=== PATIENT | female | born 1955 | race Caucasian/White ===

== ENCOUNTER → 2019-04-04 | Outpatient (CLI) | payer BC ==
[~2019-04-04] MED LIST: ALBU90OI6 INH; CEPH500 PO; Daily Multiple1 EACH; ERGO400; Ecotrin325 MG PO; FLUSAL2505 INH; FLUT110OIA IH; HM CALCIUM-MAG1 EACH PO; HYDR1TAB94 PO; IBUP800; IBUP800 PO; LISHYD2012 PO; MECL12.5 PO; OXYACE5T PO; RXCLIN PO; RXOXYACE PO; SULTRIDS PO; TUMERIC PO; Ventolin Soln3 ML INH; ZOLP10 PO
== END | disposition home or self-care (01) ==
LOC: LAB SHORT 08:42 → PLD 08:42
DX: D48.5 Neoplasm of uncertain behavior of skin (principal)
CPT/HCPCS: 88305

== ENCOUNTER 2021-07-27 09:56 | Day surgery (SDC) | payer BC ==
[~2021-07-27] VITALS: Ht 180.3 cm; Wt 110.9 kg
[~2021-07-27 09:56] MED LIST changes: +ALBU90OI INH; +Ativan1 MG; +CALCIUM MAGNES1 EAC1 PO; +DICLOFENAC SOD100 G1; +Flovent Disku250 MCG INH; +L-Lysine500 M1 PO; +TRIPHALA; +TURMERIC ROOT5000 GM; +VITAMIN D325 MC3 PO; +Valerian Root500 MG PO; +ZYRTEC10 M2 PO; +Zolpidem Tartra10 MG PO
--- NOTE | 2021-07-27 11:34 | NUR ---
07/27/21 1134 Kip Hastings BUPIVACAINE 0.5% 30 MLS MIXED 0.15 ML EPI PER ORDER TO MAKE BUPIVACAINE 0.5% 1:200,000 FOR INJECTION AT OPSITE BY DR CAMEJO.
== END 2021-07-27 13:13 | disposition home or self-care (01) ==
LOC: ORSCSDS 09:56
PROVIDERS: Podiatrist Foot & Ankle Surgery
PROC: 0SGP04Z Fusion of Right Toe Phalangeal Joint with Internal Fixation Device, Open Approach (ICD-10-PCS; principal; 2021-07-27 11:15)
PROC: 0SGQ04Z Fusion of Left Toe Phalangeal Joint with Internal Fixation Device, Open Approach (ICD-10-PCS; principal; 2021-07-27 11:15)
DX: M20.42 Other hammer toe(s) (acquired), left foot (principal); M20.41 Other hammer toe(s) (acquired), right foot; J45.909 Unspecified asthma, uncomplicated; G47.33 Obstructive sleep apnea (adult) (pediatric); E11.9 Type 2 diabetes mellitus without complications; Z79.899 Other long term (current) drug therapy
CPT/HCPCS: 82947; J0171; J0690; J1885; J2250; J2704; J3010; J7120

== ENCOUNTER → 2022-09-07 | Outpatient (CLI) | payer BC | END | disposition home or self-care (01) | LOC: LAB 10:10 → LAB SHORT 10:10 | DX: R30.0 Dysuria (principal) | CPT/HCPCS: 87077; 87086; 87186 ==

== ENCOUNTER → 2022-11-08 | Outpatient (CLI) | payer BC | END | disposition home or self-care (01) | LOC: LAB SHORT 13:50 → LAB 13:50 | DX: R30.0 Dysuria (principal) | CPT/HCPCS: 87077; 87086; 87186 ==

== ENCOUNTER → 2023-05-26 | Outpatient (CLI) | payer BC ==
[2023-06-03 08:44] LABS: HPV GENOTYPE 16 BY PCR Negative; HPV GENOTYPE 18 BY PCR Negative; HPV SOURCE Cervical; HPV, OTHER HIGH RISK BY PCR Negative
== END ==
LOC: LAB 19:40 → LAB SHORT 19:40
PROVIDERS: Internal Medicine
DX: Z00.00 Encounter for general adult medical examination without abnormal findings (principal)
CPT/HCPCS: 87624; 88142

== ENCOUNTER → 2024-05-23 | Outpatient (CLI) | payer BC ==
[~2024-05-23] MED LIST changes: +Ativan1 MG PO; +CRANBERRY500 M1 PO; +CYAN500 PO; +FLONASE ALLERG9.9 ML; +FLUTICASONE-SA1 EAC9 INH; -Flovent Disku250 MCG INH; +GABA300 PO; +PYRI100 PO; +[UNRECOGNIZED DRUG - OTHER] PO; +[UNRECOGNIZED DRUG - OTHER] PO
[2024-05-23 15:48] LABS: BASOPHILS ABSOLUTE AUTO 0.03 K/mm3 (0.00-0.23); BASOPHILS PERCENT AUTO 1 % (0-2); EOSINOPHILS ABSOLUTE AUTO 0.25 K/mm3 (0.00-0.68); EOSINOPHILS PERCENT AUTO 6 % (0-6); Hematocrit 40.9 % (33.0-51.0); Hemoglobin 13.7 g/dL (11.5-16.0); IMMATURE GRAN PERCENT AUTO 0 % (0-1); LYMPHOCYTES ABSOLUTE AUTO 1.09 K/mm3 (0.84-5.20); LYMPHOCYTES PERCENT AUTO 25 % (21-46); MONOCYTES ABSOLUTE AUTO 0.32 K/mm3 (0.16-1.47); MONOCYTES PERCENT AUTO 7 % (4-13); Mean Corpuscular HGB 31.1 pg (26.0-34.0); Mean Corpuscular HGB Conc 33.5 g/dL (31.5-36.5); Mean Corpuscular Volume 93 fL (80-100); NEUTROPHILS ABSOLUTE AUTO 2.68 K/mm3 (1.96-9.15); NEUTROPHILS PERCENT AUTO 61 % (41-73); Platelet Count 210 K/mm3 (150-400); RDW Coefficient Variation 12.5 % (11.7-14.2); RDW Standard Deviation 42.7 fL (35.1-46.3); Red Blood Cell Count 4.41 M/mm3 (3.80-5.20); White Blood Cell Count 4.37 K/mm3 (4.00-11.30)
[2024-05-23 16:37] LABS: Alanine Aminotransfer (ALT/SGP 29 U/L (12-78); Albumin, Blood 3.8 g/dL (3.4-5.0); Albumin/Globulin Ratio 1.1 (0.8-1.8); Alk Phos 81 U/L (50-136); Anion Gap 10 mmol/L (3-11); Aspartate Aminotrans (AST/SGOT 23 U/L (12-37); Bilirubin, Total 0.3 mg/dL (0.1-1.0); Blood Urea Nitrogen 14 mg/dL (8-24); Bun/Creatinine Ratio 25.4 (12.0-20.0); CHOL/HDL RATIO 2.9; CO2, Blood 27 mmol/L (21-32); Calcium, Blood 8.9 mg/dL (8.5-10.1); Chloride, Blood 107 mmol/L (98-108); Cholesterol 149 mg/dL (50-200); Creatinine, Blood 0.55 mg/dL (0.40-1.00); Globulin, Blood 3.6 g/dL (2.2-4.0); Glomerular Filtration Rate 99 (60-); Glucose, Blood 122 mg/dL (70-99); HDL Cholesterol 51 mg/dL (>39); LDL/HDL RATIO 1.5; Low Density Lipoprotein Chol 75 mg/dL (0-110); Potassium, Blood 4.1 mmol/L (3.5-5.5); Sodium, Blood 140 mmol/L (136-145); Total Protein, Blood 7.4 g/dL (6.4-8.2); Triglycerides 114 mg/dL (30-160); Very Low Density Lipoprot Chol 22 mg/dL (6-32)
== END | disposition home or self-care (01) ==
LOC: LAB SHORT 09:00
PROVIDERS: Internal Medicine
DX: Z00.00 Encounter for general adult medical examination without abnormal findings (principal); Z13.6 Encounter for screening for cardiovascular disorders; R73.01 Impaired fasting glucose
CPT/HCPCS: 80053; 80061; 83036; 85025

== ENCOUNTER 2024-05-28 08:06 | Day surgery (SDC) | payer BC ==
[~2024-05-28] VITALS: Ht 175.3 cm; Wt 112.4 kg
[2024-05-28] VITALS (12 sets, daily range): BP systolic 125–159; BP diastolic 62–92
[2024-05-28] MEDS ORDERED: Acetaminophen 500 MG Tab PO SCH ×2 (08:25→16:00)
[2024-05-28] MEDS ORDERED: Lactated Ringer's 1,000 ML IV SCH ×2 (08:25→09:25)
[2024-05-28] MEDS ORDERED: CeFAZolin Sodium 2,000 MG in NS 100 ML IV SCH ×2 (08:25→17:30)
[2024-05-28] MEDS ORDERED: Ropivacaine 0.5% HCl/Pf 123.125 MG,EPINEPHrine HCL 0.25 MG,Ketorolac Tromethamine 15 MG... INFIL SCH (08:25)
[2024-05-28] MEDS ORDERED: OxyCODONE HCL 10 MG TABCR PO SCH (08:25)
[2024-05-28] MEDS ORDERED: Chlorhexidine Mouth Care 15 ML UDC MT SCH (08:25)
[2024-05-28] MEDS ORDERED: Tranexamic Acid 1,000 MG in NS 100 ML IV SCH (08:25)
[2024-05-28] MEDS ORDERED: FentaNYL Citrate 50 MCG/ML 2 ML Injection ONE (08:43)
[2024-05-28] MEDS ORDERED: propofoL 40 ML IV ONE ×2 (08:43→10:11)
[2024-05-28] MEDS ORDERED: Midazolam HCl 1MG / ML 2ML Vial IV PRN (08:50)
[2024-05-28] MEDS ORDERED: Lidocaine HCl 1% 5 ML SYR INJ ONE (08:50)
[2024-05-28] MEDS ORDERED: CeFAZolin Sodium 2,000 MG VIAL ONE (08:51)
--- NOTE | 2024-05-28 09:09 | NUR ---
JOSE ANGELLLCHAIRED INTO DAY SURGERY. History, Chart, Medications and Allergies reviewed before start of procedure. Pre-Op teaching done. Pt verbalizes understanding.
[2024-05-28] MEDS ORDERED: Magnesium Hydroxide Conc 10 ML UDC PO PRN (09:20)
[2024-05-28] MEDS ORDERED: Bupivacaine 0.5% HCl 5 MG/ML 30MLVIAL ONE (09:21)
[2024-05-28] MEDS ORDERED: Metoclopramide HCl 5MG / ML 2ML Vial IV PRN (09:25)
[2024-05-28] MEDS ORDERED: FLU VACC TS2024-25(6MOS UP)/PF 45 MCG/0.5 ML SYRINGE IM SCH (09:25)
[2024-05-28] MEDS ORDERED: DiphenhydrAMINE HCL 25 MG Cap PO PRN (09:25)
[2024-05-28] MEDS ORDERED: HYDROmorphone HCl/Pf 1MG SYR IV PRN (09:25)
[2024-05-28] MEDS ORDERED: Bisacodyl 10 MG Supp PR PRN (09:30)
[2024-05-28] MEDS ORDERED: OxyCODONE HCL 5 MG TAB PO PRN ×2 (09:30)
[2024-05-28] MEDS ORDERED: Promethazine HCl 25 MG Tab PO PRN (09:30)
[2024-05-28] MEDS ORDERED: Ondansetron HCl 2 MG / ML 2ML Vial IV PRN (09:30)
[2024-05-28] MEDS ORDERED: Ketorolac Tromethamine 15mg Vial IV SCH (12:00)
[2024-05-28] MEDS ORDERED: Albuterol HFA200 ACT/6.7 GM INH INH PRN (15:20)
[2024-05-28] MEDS ORDERED: Mometasone/Formoterol MDI 200/5 mcg 13 GM INH SCH (15:20)
--- NOTE | 2024-05-28 18:32 | NUR ---
SUMMARY NO ACUTE CHANGES T/O SHIFT. WORKED WITH THERAPY. SITTING UP IN RECLINER. POLAR PACK IN PLACE. MEDICATED PER ORDERS FOR PAIN, PT REPORTS PAIN TOLERABLE AT THIS TIME, RATING 4/10. PT HAS VOIDED. TOLERATING PO. CALL LIGHT IN REACH.
[2024-05-28] MEDS ORDERED: Docusate Sodium 100 MG Cap PO SCH (21:00)
[2024-05-28] MEDS ORDERED: Gabapentin 300 MG Cap PO SCH (21:00)
[2024-05-29 03:49] VITALS: BP 121/61
[2024-05-29 04:40] LABS: BASOPHILS ABSOLUTE AUTO 0.02 K/mm3 (0.00-0.23); BASOPHILS PERCENT AUTO 0 % (0-2); EOSINOPHILS ABSOLUTE AUTO 0.22 K/mm3 (0.00-0.68); EOSINOPHILS PERCENT AUTO 4 % (0-6); Hematocrit 34.8 % (33.0-51.0); Hemoglobin 11.8 g/dL (11.5-16.0); IMMATURE GRAN ABSOLUTE AUTO 0.01 K/mm3 (0.00-0.10); IMMATURE GRAN PERCENT AUTO 0 % (0-1); LYMPHOCYTES ABSOLUTE AUTO 0.82 K/mm3 (0.84-5.20); LYMPHOCYTES PERCENT AUTO 15 % (21-46); MONOCYTES ABSOLUTE AUTO 0.49 K/mm3 (0.16-1.47); MONOCYTES PERCENT AUTO 9 % (4-13); Mean Corpuscular HGB 31.1 pg (26.0-34.0); Mean Corpuscular HGB Conc 33.9 g/dL (31.5-36.5); Mean Corpuscular Volume 92 fL (80-100); Mean Platelet Volume 9.4 fL (9.1-12.4); NEUTROPHILS ABSOLUTE AUTO 3.99 K/mm3 (1.96-9.15); NEUTROPHILS PERCENT AUTO 72 % (41-73); Platelet Count 166 K/mm3 (150-400); RDW Coefficient Variation 12.6 % (11.7-14.2); RDW Standard Deviation 42.8 fL (35.1-46.3); Red Blood Cell Count 3.79 M/mm3 (3.80-5.20); White Blood Cell Count 5.55 K/mm3 (4.00-11.30)
[2024-05-29 04:55] LABS: Bun/Creatinine Ratio 34.4 (12.0-20.0); Calcium, Blood 8.2 mg/dL (8.5-10.1); Creatinine, Blood 0.67 mg/dL (0.40-1.00); Magnesium, Blood 1.8 mg/dL (1.6-2.4); Potassium, Blood 4.2 mmol/L (3.5-5.5)
--- NOTE | 2024-05-29 05:13 | NUR ---
SHIFT SUMMARY POD 1 L TKA PT ABLE TO REST DURING THE NIGHT. PAIN MANAGED PER EMAR. TOLERATING PO INTAKE. VOIDING. PT TOOK MULT WALKS DURING THE SHIFT. 1P SBA W/ FWW AND GB. AQUACEL TO L KNEE IS C/D/I. PLAN TO GET UP IN THE CHAIR, WORK WITH THERAPY AND THEN D/C HOME. VSS. NO OTHER CONCERNS AT THIS TIME, CALL LIGHT WITHIN REACH
[2024-05-29] MEDS ORDERED: ASPI81CH PO (07:12)
[2024-05-29] MEDS ORDERED: ACET500 PO (07:12)
[2024-05-29] MEDS ORDERED: OXYC5 PO (07:12)
[2024-05-29 07:27] VITALS: BP 144/71
[2024-05-29] MEDS ORDERED: Fluticasone 0.05% Nasal Spray SCH (09:00)
[2024-05-29] MEDS ORDERED: Aspirin 81 MG Chew PO SCH (09:00)
[2024-05-29] MEDS ORDERED: Misc. Capsule PO SCH (09:00)
[2024-05-29] MEDS ORDERED: Cholecalciferol 1000 Unit Tablet (=25MCG) PO SCH (09:00)
[2024-05-29] MEDS ORDERED: Loratadine 10 MG Tab PO SCH (09:00)
[2024-05-29 09:44] VITALS: BP 142/70
--- NOTE | 2024-05-29 09:45 | NUR ---
DISCHARGING CLEARED THERAPY. DC INSTRUCTIONS REVIEWED W/PT BY AMANDA Castaneda RN. DC'D IV, CATHETER INTACT. VSS. AWAITING RIDE.
--- NOTE | 2024-05-29 10:00 | NUR ---
"Spiritual Care | Pt. Request Pt. is dressed and waiting for DC when she welocmes my visit. Pt. is pleasant, but is a little unsettled by the sharp pain she is experiencing. Listen with empathy and a calming preesence as I seek to normalize the Pt. experience. Pt. displays a pleasant demeanor. Consider matters of her marco a. Prayed for Pt. pt. verbaized gratitude for the spiritual care visit."
--- NOTE | 2024-05-29 10:16 | NUR ---
DISCHARGED PT LEFT UNIT IN WC W/POSSESSIONS, DC PAPERWORK, AQUACEL DRESSING AND POLAR PACK IN HAND, ACCOMPANIED BY RIDE.
== END 2024-05-29 10:18 | disposition home or self-care (01) ==
LOC: ORSCMMR 08:06 → SURS 11:48 → ORSCMMR 16:00 → SURS 23:00 → ORSCMMR 23:00
PROVIDERS: Orthopaedic Surgery
PROC: 0SRD0JA Replacement of Left Knee Joint with Synthetic Substitute, Uncemented, Open Approach (ICD-10-PCS; principal; 2024-05-28 09:30)
PROC: 8E0Y0CZ Robotic Assisted Procedure of Lower Extremity, Open Approach (ICD-10-PCS; principal; 2024-05-28 09:30)
DX: M17.12 Unilateral primary osteoarthritis, left knee (principal); E11.9 Type 2 diabetes mellitus without complications; J45.909 Unspecified asthma, uncomplicated; F41.9 Anxiety disorder, unspecified; E66.9 Obesity, unspecified; Z68.37 Body mass index [BMI] 37.0-37.9, adult; Z96.612 Presence of left artificial shoulder joint; Z96.649 Presence of unspecified artificial hip joint; Z79.899 Other long term (current) drug therapy
CPT/HCPCS: 36415; 73560-LT; 80048; 82947; 83735; 85025; 94640; 94664; 94760; 97110; 97116; 97161; A9270; C1713; C1776; J0171; J0690; J0735; J1171; J1885; J2250; J2704; J2795; J3010; J7120

== ENCOUNTER 2024-06-12 11:42 | Emergency (ER) | payer BC, OTHER ==
[~2024-06-12] VITALS: Ht 175.3 cm; Wt 113.4 kg
[~2024-06-12 11:42] MED LIST changes: +ACET500 PO; +ASPI81CH PO; +OXYC5 PO
[2024-06-12 11:46] VITALS: BP 175/54
[2024-06-12] MEDS ORDERED: Morphine Sulfate 4 MG/1 ML Injection IM ONE (14:50)
[2024-06-12] MEDS ORDERED: OxyCODONE 10/Acetamin 325 TABLET PO ONE (16:25)
[2024-06-12] MEDS ORDERED: Ketorolac Tromethamine 15mg Vial IM ONE (16:25)
== END 2024-06-12 16:44 | disposition home or self-care (01) ==
LOC: ER 11:42
DX: M79.662 Pain in left lower leg (principal); I10 Essential (primary) hypertension; J45.909 Unspecified asthma, uncomplicated; Z88.1 Allergy status to other antibiotic agents; Z91.012 Allergy to eggs; Z88.7 Allergy status to serum and vaccine; Z91.048 Other nonmedicinal substance allergy status; Z79.899 Other long term (current) drug therapy
CPT/HCPCS: 93971; 96372; 99283-25; A9270; J1885; J2270

== ENCOUNTER → 2025-05-06 | Outpatient (CLI) | payer BC ==
[2025-05-06 14:25] LABS: Alanine Aminotransfer (ALT/SGP 36 U/L (12-78); Albumin, Blood 4.0 g/dL (3.4-5.0); Albumin/Globulin Ratio 1.2 (0.8-1.8); Anion Gap 7 mmol/L (3-11); Aspartate Aminotrans (AST/SGOT 23 U/L (12-37); Bilirubin, Total 0.6 mg/dL (0.1-1.0); Blood Urea Nitrogen 13 mg/dL (8-24); CHOL/HDL RATIO 3.4; CO2, Blood 29 mmol/L (21-32); Calcium, Blood 8.6 mg/dL (8.5-10.1); Chloride, Blood 105 mmol/L (98-108); Cholesterol 175 mg/dL (50-200); Creatinine, Blood 0.58 mg/dL (0.40-1.00); Globulin, Blood 3.2 g/dL (2.2-4.0); Glucose, Blood 134 mg/dL (70-99); HDL Cholesterol 51 mg/dL (>39); LDL/HDL RATIO 1.9; Low Density Lipoprotein Chol 96 mg/dL (0-110); Potassium, Blood 3.9 mmol/L (3.5-5.5); Sodium, Blood 137 mmol/L (136-145); Total Protein, Blood 7.2 g/dL (6.4-8.2); Triglycerides 141 mg/dL (30-160); Very Low Density Lipoprot Chol 28 mg/dL (6-32)
== END ==
LOC: LAB SHORT 08:00 → LAB 08:00
PROVIDERS: Internal Medicine
DX: R73.01 Impaired fasting glucose (principal); Z13.6 Encounter for screening for cardiovascular disorders
CPT/HCPCS: 80053; 80061; 83036